=== PATIENT | female | born 1990 | race African-American/Black ===

== ENCOUNTER 2017-07-28 18:28 | Emergency (ER) | payer MEDICAID, OTHER ==
[~2017-07-28] VITALS: Ht 157.5 cm; Wt 76.2 kg
[2017-07-28 18:42] VITALS: BP 139/99
== END 2017-07-28 21:57 | disposition left against medical advice (07) ==
LOC: ER 18:32
DX: R10.2 Pelvic and perineal pain (principal); K13.79 Other lesions of oral mucosa; Z53.21 Procedure and treatment not carried out due to patient leaving prior to being seen by health care provider

== ENCOUNTER 2018-09-19 21:16 | Emergency (ER) | payer SELFPAY ==
[~2018-09-19] VITALS: Ht 152.4 cm; Wt 74.8 kg
[2018-09-19] MEDS ORDERED: ACETAMINOPHEN 500 MG TAB PO ONE (22:02)
[2018-09-19] MEDS ORDERED: MORPHINE SULF INJ 2 MG/ML SYRINGE 1ML IV ONE (23:00)
[2018-09-19 23:53] LABS: Urine Bacteria MANY /hpf (None Seen); Urine Blood 3+ /uL (Negative); Urine Mucus FEW (None Seen); Urine WBC 117 /hpf (0 - 5)
[2018-09-19] MEDS ORDERED: SODIUM CHLORIDE 0.9% 500 ML IV ONE (23:53)
[2018-09-19 23:57] LABS: Urine Specific Gravity 1.031 (1.001-1.035)
[2018-09-20] MEDS ORDERED: cefTRIAXone 1GM/50ML D5W 50 ML IV ONE
[2018-09-20 00:03] LABS: Basophils # (auto) 0 uL; Basophils % (auto) 0.2 % (0.0-2.0); Eosinophils # (auto) 0 uL; Eosinophils % (auto) 0.1 % (0.0-7.0); Hematocrit 31.8 % (36.0-46.0); Hemoglobin 10.2 g/dL (12.2-16.2); Lymphocytes # (auto) 1.1 uL; Lymphocytes % (auto) 9.8 % (10.0-50.0); Mean Corpuscular Hemoglobin 26.2 pg (28.0-32.0); Mean Corpuscular Volume 81.9 fL (80.0-100.0); Monocytes # (auto) 0.5 uL; Neutrophils # (auto) 9.8 uL; Neutrophils % (auto) 85.9 % (37.0-80.0); Platelet Count (auto) 162 10^3/uL (140-450); Red Blood Cells 3.88 10^6/uL (4.0-5.20); Red Cell Distribution Width 14.3 % (11.8-14.3); White Blood Cell 11.4 10^3/uL (4.4-10.8)
[2018-09-20 00:22] LABS: Albumin 3.7 g/dL (3.4-5.0); BUN/Creatinine Ratio 17.1; Calcium 8.5 mg/dL (8.5-10.1); Potassium 3.7 mmol/L (3.5-5.1)
[2018-09-20 00:25] LABS: Bilirubin, Total 0.2 mg/dL (0.2-1.0); Total Protein 7.4 g/dL (6.4-8.2)
[2018-09-20 04:57] VITALS: BP 124/57
== END 2018-09-20 05:37 | disposition home or self-care (01) ==
LOC: EDBD 21:16 → ER 21:18
DX: N39.0 Urinary tract infection, site not specified (principal); F17.210 Nicotine dependence, cigarettes, uncomplicated
CPT/HCPCS: 36415; 76775; 76801; 76817; 80053; 81001; 84702; 85025; 86900; 86901; 87086; 87088; 87186; 94761; 96365; 96375; 99284; J0696; J2270; J7030